=== PATIENT | male | born 2000 | race Caucasian/White ===

== ENCOUNTER 2021-11-04 21:00 | Emergency (ER) | payer OTHER, SELFPAY ==
[2021-11-04 21:01] VITALS: BP 101/90; PULSE 77; RESP 16; TEMP 36.4; O2SAT 98; BMI 25.7
--- NOTE | 2021-11-04 22:35 | RAD_ITS ---
STUDY: X-RAY - CERVICAL SPINE REASON FOR EXAM: Male, 21 years old. neck pain TECHNIQUE: 5 view(s) of the cervical spine were obtained. COMPARISON: None FINDINGS: Normal anterior atlantoaxial articulation. Normal odontoid process. Normal cervical lordosis. Normal vertebral bodies and endplates. Normal disc space heights. Normal visualized intervertebral neuroforamina. The soft tissue structures are unremarkable. RAD/Cerv Spine 4 or 5 Views IMPRESSION: Normal x-ray examination of the visualized cervical spine. Electronically Signed: Jeb Hilario DO at 23:04 EST Tel , Service support ,
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
[2021-11-04] MEDS: Orphenadrine 100 MG Tablet PO (22:46)
[2021-11-04] MEDS: Naproxen 500 MG Tablet PO (22:46)
[2021-11-05 00:11] VITALS: RESP 16
== END 2021-11-05 00:12 | disposition home or self-care (01) ==
PROVIDERS: Emergency Provider Student in an Organized Health Care Education/Training Program; Visit Provider Student in an Organized Health Care Education/Training Program
DX: S06.0X0A Concussion without loss of consciousness, initial encounter (principal); S80.12XA Contusion of left lower leg, initial encounter; S16.1XXA Strain of muscle, fascia and tendon at neck level, initial encounter; W22.01XA Walked into wall, initial encounter; Y93.22 Activity, ice hockey; Y92.330 Ice skating rink (indoor) (outdoor) as the place of occurrence of the external cause
CPT/HCPCS: 72050; 99283

== ENCOUNTER 2022-02-21 13:15 | Emergency (ER) | payer OTHER, SELFPAY ==
[2022-02-21 13:16] VITALS: BP 118/96; PULSE 83; RESP 18; TEMP 37.1; O2SAT 99; BMI 26.6
--- NOTE | 2022-02-21 13:46 | EDS_ITS ---
HPI HPI - GI History of Present Illness Chief Complaint: Abd Pain Informant: patient Abdominal Pain/Flank Pain Onset: Weeks Context: Gradual Onset Timing: Intermittent Quality: Cramping Location: Diffuse and Epigastric Current Severity: Mild Maximum Severity: Mild Nausea/Vomiting/Emesis GI Symptom: Negative for Nausea and Vomiting Diarrhea/Melena/Hematochezia GI Symptom: Negative for Diarrhea, Melena and Hematochezia Associated Symptoms Associated Symptoms: Negative for Dysuria, Frequency, Hematuria and Urgency Narrative Narrative: 21-year-old male no significant past medical history. No prior abdominal surgeries. States last week and this week he has had intermittent abdominal pain primarily epigastric but at times been other areas. Denies any nausea, vomiting or diarrhea. No fevers or chills. No dysuria. No melena. No weight change. He has been eating and drinking well. Denies any trauma. Prior similar symptoms: No Recent Illness/Hospitalization: No PFSH PFSH Medical History Depression no medical history Home Medications cyclobenzaprine 10 mg PO TID PRN #20 tablet 11/04/21 [Rx Last Taken Unknown] naproxen [Naprosyn] 500 mg PO BID PRN #20 tab 11/04/21 [Rx Last Taken Unknown] Allergy/AdvReac Type Severity Reaction Status Date / Time No Known Allergies Allergy Verified 02/21/22 13:18 Surgical History no surgical history no surgical history Social History Smoking Status: Never smoker ROS ROS ED ROS Narrative Abdominal pain. Review of Systems ROS Unobtainable: Denies due to encephalopathy Constitutional Constitutional ED: Denies chills, fever(s) or subjective ENT ENT ED: Denies ear pain Cardiovascular Cardiovascular: Denies chest pain Respiratory/Chest Respiratory/Chest: Denies dyspnea Gastrointestinal Gastrointestinal: Reports abdominal pain; Denies constipation, diarrhea, melena, nausea or vomiting Genitourinary Genitourinary ED: Denies dysuria Musculoskeletal Musculoskeletal: Denies myalgias Integumentary Denies rash Neurologic Neurologic: Denies headache(s) Psychiatric Psychiatric: Denies depression Endocrine Endocrinology: Denies polyuria Hematologic/Lymphatic Hematologic/Lymphatic: Denies easy bruising Allergic/Immunologic Allergic/Immunologic ED: Denies urticaria EXAM Physical Exam Narrative Exam Narrative: Well-appearing 21-year-old male. Vital signs stable afebrile. H EENT exam unremarkable. Moist use membranes. Neck nontender no lymphadenopathy. Lungs clear to auscultation. Heart regular rhythm no murmur. Abdomen soft nondistended normal bowel sounds no peritoneal signs. Minimally tender epigastric region. Right upper and right lower quadrant unremarkable. No hernia no mass no distention no obstruction. Moving all 4 extremities. Back nontender. Neurologically is awake alert. Const Vital Signs: 02/21/22 13:16 Temperature 98.7 F Temperature Source Temporal Pulse Rate 83 Respiratory Rate 18 Blood Pressure 118/96 H Blood Pressure Mean 103 Pulse Ox 99 Oxygen Delivery Method Room Air Positive well nourished and well developed; Negative for obese, cachectic, contractures or unkempt General Appearance ED: well developed and NAD; Negative for unkempt, cachectic or contractures Nutritional Appearance: Negative for cachectic or obese HEENT Reports moist mucous membranes normocephalic and atraumatic; Negative for trauma or tenderness Eyes PERRL and EOMs intact bilaterally General Eye ED: Negative for pale conjunctiva or scleral icterus Neck no lymphadenopathy, supple and no JVD General: Negative for tenderness Resp normal respiratory effort and clear to auscultation bilaterally Auscultation: Negative for rales, rhonchi or wheezes Cardio regular rate, regular rhythm, S1 normal heart sound, S2 normal heart sound and no murmurs GI non-distended and no masses; Negative for non-tender GI Narrative: Very mild epigastric tenderness. Both right upper and right lower quadrants are unremarkable. Auscultation: normoactive bowel sounds Palpation: soft, tender and rebound tenderness present; Negative for guarding or rigid Back/Spine no CVA tenderness General Back: Negative for CVA tenderness Cervical Spine: Negative for cervical spine tenderness Thoracic Spine / Upper Back: Negative for thoracic spinal tenderness Extremity full ROM General Extremety ED: Negative for edema or tenderness General Extremity: Negative for edema Neuro moves all extremities Sensorium / Orientation: alert, oriented to person, oriented to place and oriented to time; Negative for orientation impaired, confused, lethargic or stuporous Motor Exam: strength 5/5 throughout Psych mental status grossly normal and thought process normal Appearance: Negative for unkempt Skin no wounds Lesions: no lesions Rashes: no rashes MDM MDM MDM Narrative Medical decision making narrative: 21-year-old male with normal exam minimal epigastric pain on exam. This is not appendicitis. Does not appear to be his gallbladder. Screening labs today obtained. At this time LDG needs any imaging. States he has been moving his bowels this week. Repeat exam at 2:14 PM patient doing well. Abdomen benign. We discussed all of his test results. At this time I do not think there is any reason to do any imaging he can follow-up if he is not improving or return if he has worsening pain. Lab Data Attestation: I reviewed the patient's lab results. Lab results narrative: CBC normal. White count of 5. H&H 15 and 44. Elec trolytes unremarkable gap of 5. Normal BUN and creatinine. Liver enzymes normal. Lipase is low at 47. Labs: Laboratory Results - last 24 hr 02/21/22 02/21/22 13:42 13:42 WBC 5.4 RBC 4.88 Hgb 15.2 Hct 44.0 MCV 90.2 MCH 31.1 MCHC 34.5 RDW Std Deviation 38.5 RDW Coeff of Mirella 11.7 Plt Count 280 MPV 10.1 Immature Gran % (Auto) 0.200 Neut % (Auto) 48.3 Lymph % (Auto) 36.9 [place] % (Auto) 11.8 H Eos % (Auto) 2.1 Baso % (Auto) 0.7 Absolute Neuts (auto) 2.6 Absolute Lymphs (auto) 1.98 Nucleated RBC % 0 Sodium 138 Potassium 3.8 Chloride 103 Carbon Dioxide 30.0 Anion Gap 5 BUN 15 Creatinine 0.95 Estim Creat Clear Calc 120.00 Est GFR (MDRD) Af Amer 130 Est GFR (MDRD) Non-Af 108 BUN/Creatinine Ratio 15.8 Glucose 90 Calcium 9.7 Total Bilirubin 0.60 AST 19 ALT 25 Alkaline Phosphatase 78 Total Protein 8.0 Albumin 4.6 Globulin 3.4 Albumin/Globulin Ratio 1.4 Lipase 47 L Discharge Plan Triage Chief Complaint: Abd Pain ED Provider: Tutu Hodgson Dx/Rx/DC Orders Clinical Impression: Abdominal pain Instructions: Abdominal Pain Prescriptions: No Action naproxen [Naprosyn] 500 mg tablet 500 mg PO BID PRN (Reason: pain) Qty: 20 RF: 0 cyclobenzaprine 10 mg tablet 10 mg PO TID PRN (Reason: Muscle Spasm) Qty: 20 RF: 0 Referrals: Sylvain JONES [Other] Activity Restrictions/Additional Instructions: All your blood work is normal. Follow-up with your doctor if you have continued abdominal pain. Return to emergency department if feeling a lot worse. Disposition Disposition: Home, Self Care
[2022-02-21 13:59] LABS: Absolute Lymphocyte Count 1.98 X10^3/uL (0.83-4.51); Absolute Neutrophil Count 2.6 X10^3/uL (2.0-7.7); Basophil# 0.04 X10^3/uL; Basophil% 0.7 % (0-1); Eosinophil# 0.11 X10^3/uL; Eosinophils% 2.1 % (0-5); Hemoglobin 15.2 g/dL (13.0-16.5); Lymphocyte # 1.98 X10^3/ul (0.83-4.51); Lymphocyte % 36.9 % (19-41); Mean Corp Hgb Conc 34.5 g/dL (32-36); Mean Corpuscular Hgb 31.1 pg (27.0-32.0); Mean Corpuscular Volume 90.2 fL (80-94); Mean Platelet Vol. 10.1 fl (6.2-12.0); Monocyte# 0.63 X10^3/uL; Monocyte% 11.8 % (0-10); NRBC Flagged by Analyzer 0 % (0-5); Neutrophil # 2.59 X10^3/uL (2.7-7.7); Neutrophil % 48.3 % (47-70); Platelet Count 280 K/mm3 (150-450); RBC Distribution Width CV 11.7 % (11.6-14.6); RBC Distribution Width SD 38.5 fl (35.1-43.9); Red Blood Count 4.88 M/mm3 (4.6-6.2); White Blood Count 5.4 K/mm3 (4.4-11.0)
[2022-02-21 14:14] LABS: ALB/GLOB Ratio 1.4 RATIO (0.9-2.4); AST(SGOT) 19 U/L (15-37); Alanine Aminotransfer ALT/SGPT 25 U/L (16-61); Albumin, Serum 4.6 g/dL (3.2-5.0); Alkaline Phosphatase 78 U/L (45-117); Anion Gap 5 (5-15); BUN 15 mg/dL (7-18); BUN/Creat Ratio 15.8 RATIO (10-20); Calcium,Total 9.7 mg/dL (8.5-10.1); Chloride 103 mmol/L (98-107); Creatinine, Serum 0.95 mg/dL (0.70-1.30); EST Glomerular Filtration Rate 108 mL/min (>60); Est Glom Filt Rate - Afr Amer 130 mL/min (>60); Globulin 3.4 g/dL (2.2-4.2); Glucose 90 mg/dL (74-106); Lipase 47 U/L (73-393); Potassium 3.8 mmol/L (3.5-5.1); Sodium Level 138 mmol/L (136-145)
== END 2022-02-21 14:29 | disposition home or self-care (01) ==
PROVIDERS: Emergency Provider Emergency Medicine; Visit Provider Emergency Medicine
DX: R10.13 Epigastric pain (principal)
CPT/HCPCS: 80053; 83690; 85025; 99283